=== PATIENT | male | born 1955 | race Caucasian/White ===

== ENCOUNTER 2018-03-13 09:28 | Outpatient (CLI) | payer BC, SELFPAY ==
--- NOTE | 2018-03-13 09:28 | DI.RAD_ITS ---
SYMPTOM/DIAGNOSIS: LT KNEE PAIN, ? DJD LEFT KNEE: Three views. No priors. There is mild narrowing of the femoral tibial joint space. Mild periarticular spurring is seen of the posterior patella. The bones are intact and normally mineralized. There is a small suprapatellar joint effusion. Vascular calcifications are seen in the soft tissues. IMPRESSION: Mild degenerative changes of the left knee.
== END 2018-03-13 09:48 ==
PROVIDERS: PCP Nurse Practitioner; Visit Provider Orthopaedic Surgery
DX: M25.562 Pain in left knee (principal); M17.12 Unilateral primary osteoarthritis, left knee; M25.462 Effusion, left knee
CPT/HCPCS: 73562

== ENCOUNTER 2018-06-08 02:55 | Outpatient (CLI) | payer BC, SELFPAY ==
[2018-06-08 09:55] LABS: HCT 42.1 % (40.0-50.0); HGB 15.1 g/dL (13.5-17.5); Mean Corp. HGB Concentration 35.9 g/dL (32.0-36.0); Mean Corpuscular Hemoglobin 32.8 pg (27.0-33.0); Mean Corpuscular Volume 91.3 fL (80-95); Mean Platelet Volume 10.2 fL (8.0-11.0); Platelet Count 177 x1000/uL (130-400); RBC 4.61 m/cumm (4.50-6.00); RBC Distribution Width 12.5 % (11.8-14.1); White Blood Cell Count 4.79 k/cumm (4.4-10.8)
[2018-06-08 10:09] LABS: ALT 34 U/L (12-78); AST 24 U/L (15-37); Albumin 3.6 g/dL (3.4-5.0); Alkaline Phosphatase 115 U/L (46-116); BUN 14 mg/dL (7-18); Bilirubin, Total 1.6 mg/dL (0.2-1.0); CREATININE 1.01 mg/dL (0.70-1.30); Calcium 8.9 mg/dL (8.5-10.1); Chloride 103 mmol/L (98-107); Cholesterol 138 mg/dL (50-200); Glucose 100 mg/dL (70-100); HDL Cholesterol 38 mg/dL (40-60); LDL CHOLESTEROL 92 mg/dL (<100); Potassium 3.9 mmol/L (3.5-5.1); Sodium 143 mmol/L (136-145); Triglyceride 61 mg/dL (30-150)
== END 2018-06-08 03:15 ==
PROVIDERS: PCP Nurse Practitioner; Visit Provider Nurse Practitioner
DX: I10 Essential (primary) hypertension (principal); E78.5 Hyperlipidemia, unspecified; E66.9 Obesity, unspecified
CPT/HCPCS: 36415; 80053; 80061; 83721; 85027

== ENCOUNTER → 2018-09-27 08:30 | Outpatient (BNVA) | payer MEDICARE, OTHER, SELFPAY | PROVIDERS: PCP Nurse Practitioner; Referring Provider Nurse Practitioner; Visit Provider Orthopaedic Surgery | DX: M17.12 Unilateral primary osteoarthritis, left knee (principal) | CPT/HCPCS: 20610; 99211; 99212; J7325 ==

== ENCOUNTER 2018-10-14 08:50 | Emergency (ER) | payer MEDICARE, SELFPAY ==
[2018-10-14 09:05] VITALS: BP 152/74; PULSE 76; RESP 16; TEMP 36.8; O2SAT 96
--- NOTE | 2018-10-14 09:33 | ED.GENADUL_ITS ---
Discharge Plan Disposition Patient Disposition: HOME Discharge Details Chief Complaint: Nausea/Vomit/Diar Clinical Impression: Diarrhea Primary Care Provider: Noris Diallo ED Provider: Pradeep Carrasco Home Meds and New Rx's Prescriptions: No Action Prilosec OTC 20 mg tablet,delayed release (DR/EC) 20 mg PO DAILY RF: 0 losartan-hydrochlorothiazide [Hyzaar] 50-12.5 mg tablet 1 tab PO DAILY Qty: 90 RF: 3 aspirin [Aspir-81] 81 MG tablet,delayed release (DR/EC) 81 mg PO DAILY RF: 0 naproxen sodium [Aleve] 220 MG tablet 220 mg PO Q12H PRN RF: 0 Zyrtec 10 MG tablet,disintegrating 10 mg PO DAILY PRNRF: 0 ibuprofen-diphenhydramine cit [Motrin PM] 1 EACH tablet 1 ea PO HS PRNRF: 0 desoximetasone 0.25 % cream 1 applic TP BID PRN (Reason: skin irritation) Qty: 60 RF: 3 Discharge Instructions Instructions: High Fiber Diet (ED), Acute Diarrhea (ED) Additional Instructions: Your blood tests today do not show anything acute at this time to cause your symptoms. It is imperative to follow-up with your doctor over the next 1 to 2 days for follow-up as you may require further testing to investigate the cause of your symptoms. Return to the emergency department should you develop abdominal pain, vomiting or fever. Referrals: Noris Diallo, DRIER ATTENDANT [Primary Care Provider] - 1 day Medical Decision Making This is a nontoxic-appearing 63-year-old gentleman with somewhat chronic symptoms of diarrhea and increased flatulence over the last 2 to 3 months. His abdominal exam today is benign and is without pain. Vitals are stable with the exception of a slight hypertension. His blood test today are unremarkable. No indication for CT at this time based on his lack of abdominal pain symptoms. I do feel he would require follow-up with his primary care provider to discuss further work-up possibly including upper and lower endoscopy. Patient is stable at this time for discharge HPI General Date/Time Provider Initiated Documentation: 10/14/18 09:21 . HPI Narrative: Patient is a 63-year-old male with past medical history significant for hypertension and GERD who presents to the emergency department with roughly 2 to 3 months of intermittent bouts of diarrhea with increased flatulence. He admits to periods of nausea however diet denies any nausea now. No abdominal pain associated with the symptoms. No chest pain or shortness of breath. He denies any watery diarrhea. No recent antibiotics or travel outside of the country. He denies any sick contacts. His most recent colonoscopy was 5 years ago which was significant for diverticulosis. Related Data Home Medications Medication Instructions Recorded Confirmed aspirin [Aspir 81] 81 mg PO DAILY tab 07/04/12 10/14/18 cetirizine [Zyrtec] 10 mg PO DAILY PRN 07/04/12 10/14/18 naproxen sodium [Aleve] 220 mg PO Q12H PRN tab 07/04/12 10/14/18 ibuprofen-diphenhydramine cit 1 ea PO HS PRN cap 06/16/15 10/14/18 [Motrin Pm Caplet] desoximetasone 0.25 % topical cream 1 applic TP BID PRN #60 gm 12/22/17 10/14/18 losartan 50 mg-hydrochlorothiazide 1 tab PO DAILY #90 tab 06/28/18 10/14/18 12.5 mg tablet omeprazole magnesium 20 mg 20 mg PO DAILY 06/28/18 10/14/18 tablet,delayed release Previous Rx's Medication Instructions Recorded desoximetasone 0.25 % topical cream 1 applic TP BID PRN #60 gm 12/22/17 losartan 50 mg-hydrochlorothiazide 1 tab PO DAILY #90 tab 06/28/18 12.5 mg tablet Allergies Allergy/AdvReac Type Severity Reaction Status Date / Time lisinopril AdvReac Intermediate Cough Verified 10/14/18 09:12 pseudoephedrine HCl AdvReac Intermediate extremely Verified 10/14/18 09:12 [From [facility]] high BP oxycodone AdvReac Unknown Nausea and Verified 10/14/18 09:12 Vomiting General Stated Complaint: Nausea/Vomit/Diar JEFFY: 3 Review of Systems Constitutional Denies body ache(s), Denies chills, Reports fatigue, Denies fever(s), Denies lethargy, Denies malaise and Denies night sweats ENT Denies neck pain Cardiovascular Denies chest pain, Denies edema, Denies irregular heart rhythm and Denies dyspnea Respiratory Denies cough and Denies dyspnea Gastrointestinal Denies abdominal pain, Denies belching, Denies melena, Reports bloating, Denies constipation, Reports cramping, Reports excessive flatus, Denies heartburn, Denies diarrhea, Reports loose stools, Reports nausea, Denies vomiting and Denies hematemesis Genitourinary Denies genital pain, Denies dysuria and Denies urinary frequency Musculoskeletal Denies back pain, Denies myalgias, Denies atrophy and Denies neck pain Integumentary/Breasts Denies rash Endocrine Reports fatigue PFSH Family History Father Heart disease Mother No problems noted. Social History Smoking/Tobacco Use Status: Former Tobacco Use Alcohol Intake: never Drug use: Never Household members: spouse What is your relationship status?: Panel score (0-1 are the most socially isolated patients): 1 Sivan/Cheondoism: zoroastrianism Do you feel safe at home: Yes Do you feel safe in your relationship?: Yes Exam Const General: cooperative, healthy appearing and comfortable Nutritional Appearance: average body habitus Orientation: alert, awake and oriented x3 HENMT Head: normal to inspection Eyes General: appearance normal, both eyes and all related structures Chest Chest: normal inspection of the chest Resp Effort & Inspection: normal respiratory effort and able to speak in complete sentences Auscultation: clear to auscultation bilaterally Cardio Jugular venous pressure: no JVD Rate: regular rate Rhythm: regular rhythm Heart Sounds: S1 normal and S2 normal GI Inspection: normal to inspection Palpation: soft and no hepatosplenomegaly Back/Spine/Pelvis Back: no CVA tenderness Thoracic/Lumbar Spine: thoracic and lumbar spine normal to inspection Skin General skin exam: no rashes or lesions noted Course Vital Signs Temperature 36.8 C 10/14/18 09:05 Pulse 76 10/14/18 09:05 Respiratory Rate 16 10/14/18 09:05 Blood Pressure 152/74 H 10/14/18 09:05 Pulse Oximetry 96 10/14/18 09:05 Temperature 36.8 C 10/14/18 09:05 Temperature Source Temporal Artery Scan 10/14/18 09:05 Pulse 76 10/14/18 09:05 Respiratory Rate 16 10/14/18 09:05 Respiratory Effort Non-Labored 10/14/18 09:09 Blood Pressure 152/74 H 10/14/18 09:05 Blood Pressure Position Sitting 10/14/18 09:05 Pulse Oximetry 96 10/14/18 09:05 Oxygen Delivery Method Room Air 10/14/18 09:05 Oxygen Flow Rate 0 10/14/18 09:05 Pain Level 2 10/14/18 09:05
[2018-10-14 10:04] LABS: Absolute Basophil Count 0.01 k/cumm (0.0-0.2); Absolute Lymphocyte Count 1.35 k/cumm (1.2-3.4); Absolute Monocyte Count 0.55 k/cumm (0.11-0.7); Absolute Neutrophil Count 3.61 k/cumm (1.2-6.7); Basophils % 0.2; Eosinophils % 3.5; HCT 40.5 % (40.0-50.0); HGB 14.7 g/dL (13.5-17.5); Lymphocytes % 23.6; Mean Corp. HGB Concentration 36.3 g/dL (32.0-36.0); Mean Corpuscular Hemoglobin 32.9 pg (27.0-33.0); Mean Corpuscular Volume 90.6 fL (80-95); Mean Platelet Volume 9.3 fL (8.0-11.0); Monocytes % 9.6; Neutrophils % 63.1; Platelet Count 167 x1000/uL (130-400); RBC 4.47 m/cumm (4.50-6.00); RBC Distribution Width 12.6 % (11.8-14.1); White Blood Cell Count 5.72 k/cumm (4.4-10.8)
[2018-10-14 10:23] LABS: ALT 32 U/L (12-78); AST 24 U/L (15-37); Albumin 3.6 g/dL (3.4-5.0); Alkaline Phosphatase 101 U/L (46-116); Anion Gap 6.6 mmol/L (3-11); BUN 14 mg/dL (7-18); CO2 30.4 mmol/L (21.0-32.0); CREATININE 1.02 mg/dL (0.70-1.30); Calcium 8.7 mg/dL (8.5-10.1); Chloride 104 mmol/L (98-107); Glucose 104 mg/dL (70-100); Magnesium 1.8 mg/dL (1.8-2.4); Potassium 3.7 mmol/L (3.5-5.1); Sodium 141 mmol/L (136-145)
[2018-10-14 10:34] LABS: Bilirubin Negative (Negative); Blood Negative (Negative); Clarity Clear (Clear); Glucose Negative (Negative); Ketones Negative (Negative); Leukocyte Esterase Negative (Negative); Nitrite Negative (Negative); Specific Gravity 1.015 (1.005-1.025); Urobilinogen 0.2 EU/dL (Up TO 0.2); pH 7.5 (5-8)
[2018-10-14 11:13] VITALS: BP 140/79; PULSE 67; RESP 16; O2SAT 95
[2018-10-14 11:16] VITALS: BP 140/79; PULSE 67; RESP 16; O2SAT 95
== END 2018-10-14 11:16 | disposition home or self-care (01) ==
PROVIDERS: Emergency Provider Physician Assistant; PCP Nurse Practitioner
DX: R19.7 Diarrhea, unspecified (principal); K21.9 Gastro-esophageal reflux disease without esophagitis; I10 Essential (primary) hypertension
CPT/HCPCS: 36415; 80053; 99283; 81003; 83735; 85025

== ENCOUNTER 2018-10-15 10:20 | Outpatient (CLI) | payer MEDICARE, SELFPAY ==
--- NOTE | 2018-10-15 10:04 | DI.RAD_ITS ---
SYMPTOM/DIAGNOSIS: ASSESS STOOL AND GAS PATTERN, ? EXCESS STOOL R14.0, ABDOMINAL DISTENSION R19.7 ABDOMEN: 10/15 Two views were obtained. Note is made of mild degenerative changes of both hips and SI joints with old inferior pelvic deformity consistent with healed fracture and no change in alignment from 05/31/2011. There are moderate degenerative changes of the lower lumbar spine. Multiple vascular clips are present in the right upper quadrant. Bowel gas pattern is unremarkable. No evidence of organomegaly. No evidence of urinary tract calcification. CONCLUSION: No evidence of acute intra-abdominal process. No evidence of constipation by radiographic criteria.
== END 2018-10-15 10:40 ==
PROVIDERS: PCP Nurse Practitioner; Visit Provider Nurse Practitioner Adult Health
DX: R14.0 Abdominal distension (gaseous) (principal); R19.7 Diarrhea, unspecified
CPT/HCPCS: 74018

== ENCOUNTER 2019-03-29 09:32 | Outpatient (CLI) | payer MEDICARE, OTHER, SELFPAY ==
--- NOTE | 2019-03-29 09:47 | DI.RAD_ITS ---
EXAM: XR KNEE LT 3V AP,LAT,CHIDI CLINICAL HISTORY: OA left knee TECHNIQUE: COMPARISON: XR knee RT 3V AP,lat,chidi from 03/13/2018 FINDINGS: Three views were obtained. There is an old healed proximal fibular diaphyseal fracture. There is na rrowing of the lateral tibiofemoral cartilaginous joint space and to a lesser degree narrowing of the medial tibiofemoral cartilaginous joint space. Mild marginal osteophyte formation noted. Small ent hesophyte of the superior patella noted. IMPRESSION: Degenerative changes predominantly involving lateral tibiofemoral joint.
--- NOTE | 2019-03-29 09:55 | DI.RAD_ITS ---
EXAM: XR HIP LT COMPLETE AP PELVIS CLINICAL HISTORY: left knee pain TECHNIQUE: COMPARISON: LEFT HIP COMPLETE from 05/31/2011 FINDINGS: Two views were obtained. There is narrowing of the cartilaginous joint spaces of both hips. There a re moderate hypertrophic changes of the acetabula bilaterally, slight head deformity noted bilaterall y as well. Calcific or ossific bodies seen adjacent to both hip joints left greater than right. IMPRESSION: Moderate DJD both hips. Probable old healed pelvic fracture.
== END 2019-03-29 09:52 ==
PROVIDERS: PCP Nurse Practitioner; Referring Provider Nurse Practitioner; Visit Provider Student in an Organized Health Care Education/Training Program
DX: M25.562 Pain in left knee (principal); M17.12 Unilateral primary osteoarthritis, left knee; M16.52 Unilateral post-traumatic osteoarthritis, left hip
CPT/HCPCS: 73562; 99214; 73502

== ENCOUNTER → 2019-04-15 10:32 | Outpatient (BNVA) | payer MEDICARE, OTHER, SELFPAY | PROVIDERS: PCP Nurse Practitioner; Referring Provider Nurse Practitioner; Visit Provider Student in an Organized Health Care Education/Training Program | DX: M17.12 Unilateral primary osteoarthritis, left knee (principal) | CPT/HCPCS: 99213 ==

== ENCOUNTER → 2019-05-20 12:58 | Outpatient (BNVA) | payer MEDICARE, OTHER, SELFPAY | PROVIDERS: PCP Nurse Practitioner; Referring Provider Nurse Practitioner; Visit Provider Student in an Organized Health Care Education/Training Program | DX: M17.12 Unilateral primary osteoarthritis, left knee (principal) | CPT/HCPCS: 99213 ==

== ENCOUNTER → 2019-07-15 09:06 | Outpatient (BNVA) | payer MEDICARE, SELFPAY | PROVIDERS: PCP Nurse Practitioner; Referring Provider Nurse Practitioner; Visit Provider Student in an Organized Health Care Education/Training Program | DX: M16.52 Unilateral post-traumatic osteoarthritis, left hip (principal); M17.12 Unilateral primary osteoarthritis, left knee | CPT/HCPCS: 99213 ==

== ENCOUNTER 2019-07-18 01:05 | Outpatient (CLI) | payer MEDICARE, SELFPAY ==
--- NOTE | 2019-07-18 07:45 | DI.RAD_ITS ---
EXAM: RF JOINT INJECTION FLUORO GUID CLINICAL HISTORY: OA left hip,POST TRAUMATIC, M16.52 TECHNIQUE: COMPARISON: No exams were available for comparison FINDINGS: Fluoroscopy was utilized by Dr. Brown during left hip injection. Hard copy shows intra-articular injection. Fluoro time was 6 seconds. IMPRESSION:
--- NOTE | 2019-07-18 14:02 | W.PROCNOTE ---
Date of service: 07/18/19 Time of Service: 14:02 Procedure Note Date of procedure: 07/18/19 Procedure: Left Hip Injection with Fluoroscopic Guidance Surgeon/Proceduralist/Physician: Graeme Brown Procedure Diagnosis: Left Hip Osteoarthritis Procedure Indications: Klever has had persistent pain of the LEFT hip and leg. He has history of trauma on the left hip and some arthritis. To rule out the hip as a source of pain for the leg and knee, I recommended an injection of the left hip. I had discussed the risks of the procedure and the patient elected to proceed. Procedure Description: Klevre was greeted in the flouroscopy room. The correct side was identified and the consent was reviewed with the patient and signed. The patient was then placed in the supine position on the fluoroscopy table. The LEFT hip was then prepped with Chloraprep. The anterolateral injection starting point was identiifed by bony landmarks and fluoroscopy. The skin and soft tissue in the tract of the injection was anesthetized with 1% Lidocaine. A spinal needle was then inserted deep into the hip joint at the level of the lateral femoral neck under fluoroscopic guidance. A small amount of Omnipaque solution was injected to confirm intraarticular placement. Once confirmed, the hip was injected with 6cc of 0.5% Bupivicaine and 80mg of Depo-Medrol. A bandaid was placed on the injection site. The patient tolerated the procedure well and noted improvement in pre-injection pain.
[2019-07-18] MEDS: Omnipaque 300 MG/ML 10 ML BTL IJ (14:57)
[2019-07-18] MEDS: Bupivacaine 0.5% Pres-Free 10 ML VIAL 6 ML IJ (14:59)
[2019-07-18] MEDS: methylPREDNISolone ACETATE 80 MG/ML VIAL IM (15:00)
== END 2019-07-18 01:25 ==
PROVIDERS: PCP Nurse Practitioner; Visit Provider Student in an Organized Health Care Education/Training Program
DX: M25.552 Pain in left hip (principal); M79.605 Pain in left leg; M16.52 Unilateral post-traumatic osteoarthritis, left hip
CPT/HCPCS: 20610; 77002; J1040

== ENCOUNTER 2019-08-22 04:36 | Outpatient (CLI) | payer MEDICARE, SELFPAY ==
[2019-08-22 08:30] LABS: Absolute Basophil Count 0.03 k/cumm (0.0-0.2); Absolute Eosinophil Count 0.21 k/cumm (0.0-0.7); Absolute Lymphocyte Count 1.64 k/cumm (1.2-3.4); Absolute Monocyte Count 0.57 k/cumm (0.11-0.7); Basophils % 0.6; Eosinophils % 3.9; HCT 41.2 % (40.0-50.0); HGB 14.9 g/dL (13.5-17.5); Lymphocytes % 30.7; Mean Corp. HGB Concentration 36.2 g/dL (32.0-36.0); Mean Corpuscular Hemoglobin 32.7 pg (27.0-33.0); Mean Corpuscular Volume 90.5 fL (80-95); Mean Platelet Volume 9.6 fL (8.0-11.0); Monocytes % 10.7; Neutrophils % 54.1; Platelet Count 206 x1000/uL (130-400); RBC 4.55 m/cumm (4.50-6.00); RBC Distribution Width 12.6 % (11.8-14.1); White Blood Cell Count 5.35 k/cumm (4.4-10.8)
[2019-08-22 08:39] LABS: Hemoglobin A1C 5.3 % (3.8-5.6)
[2019-08-22 08:58] LABS: ALT 43 U/L (16-63); AST 28 U/L (15-37); Albumin 3.9 g/dL (3.4-5.0); Alkaline Phosphatase 139 U/L (46-116); Anion Gap 5.7 mmol/L (3-11); BUN 12 mg/dL (7-18); Bilirubin, Total 1.3 mg/dL (0.2-1.0); CO2 32.3 mmol/L (21.0-32.0); CREATININE 0.99 mg/dL (0.70-1.30); Calcium 8.8 mg/dL (8.5-10.1); Chloride 104 mmol/L (98-107); Glucose 109 mg/dL (74-106); Potassium 3.7 mmol/L (3.5-5.1); Sodium 142 mmol/L (136-145); Total Protein 7.1 g/dL (6.4-8.2)
[2019-08-22 09:00] LABS: Calculated LDL 104 mg/dL (<100); Cholesterol 168 mg/dL (<200); HDL Cholesterol 46 mg/dL (40-60); Triglyceride 93 mg/dL (<150)
== END 2019-08-22 04:56 ==
PROVIDERS: Student in an Organized Health Care Education/Training Program; PCP Nurse Practitioner; Visit Provider Nurse Practitioner
DX: I10 Essential (primary) hypertension (principal); E78.6 Lipoprotein deficiency; R73.01 Impaired fasting glucose
CPT/HCPCS: 36415; 80053; 80061; 83036; 85025

== ENCOUNTER 2019-08-30 09:15 | Outpatient (CLI) | payer MEDICARE, SELFPAY ==
--- NOTE | 2019-08-30 08:30 | DI.RAD_ITS ---
EXAM: XR STANDING ALIGNMENT CLINICAL HISTORY: preoperative planning TECHNIQUE: COMPARISON: No exams were available for comparison FINDINGS: AP standing alignment views were obtained for preoperative planning. There are mild degenerative janny nges of both hips. There are degenerative changes of the medial and lateral tibiofemoral joints bila terally. IMPRESSION:
== END 2019-08-30 09:35 ==
PROVIDERS: PCP Nurse Practitioner; Referring Provider Nurse Practitioner; Visit Provider Physician Assistant
DX: M16.0 Bilateral primary osteoarthritis of hip (principal); M17.0 Bilateral primary osteoarthritis of knee; Z01.818 Encounter for other preprocedural examination
CPT/HCPCS: 77073

== ENCOUNTER 2019-09-02 07:55 | Outpatient (CLI) | payer MEDICARE, SELFPAY ==
[2019-09-02 20:44] LABS: COVID-19 RT-PCR UVMMC Result Negative (Negative)
== END 2019-09-02 08:15 ==
PROVIDERS: PCP Nurse Practitioner; Visit Provider Student in an Organized Health Care Education/Training Program
DX: Z01.818 Encounter for other preprocedural examination (principal); Z11.59 Encounter for screening for other viral diseases
CPT/HCPCS: U0003

== ENCOUNTER 2019-09-04 07:06 | Observation (INO) | payer MEDICARE, SELFPAY ==
[2019-09-04] VITALS (8 sets, daily range): BP systolic 149–164; BP diastolic 76–92; PULSE 52–72; RESP 15–19; TEMP 36.2–36.8; O2SAT 96–98
[2019-09-04] MEDS: Acetaminophen 500 MG TAB 1000 MG PO ×2 (06:26→12:46)
[2019-09-04] MEDS: Celecoxib 200 MG CAP 400 MG PO (06:26)
[2019-09-04] MEDS: Gabapentin 300 MG CAP PO (06:26)
[2019-09-04] MEDS: Lactated Ringers 1,000 ML 80 ML IV ×2 (07:31→12:03)
[2019-09-04] MEDS: ceFAZolin 2 GM/50 ML BAG IVPB (07:47)
[2019-09-04] MEDS: Ketorolac 30 MG/ML VIAL (08:14)
[2019-09-04] MEDS: Bupivacaine 0.25% Pres-Free 30 ML VIAL (08:14)
[2019-09-04] MEDS: Normal Saline 20 ML VIAL (08:16)
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
--- NOTE | 2019-09-04 13:11 | ROE_ITS ---
Date of service: 09/04/19 Time of Service: 09:29 Operative Note Operative Note DATE OF PROCEDURE: 09/04/19 PRE-OP DIAGNOSIS: Left Knee Osteoarthritis POST-OP DIAGNOSIS: same PROCEDURE: Left Total Knee Replacement SURGEON: Graeme Brown COMMUNICATIONS PROJECT MANAGER: Tatum Temple COMMUNICATIONS PROJECT MANAGER: Yannick Mcmahon ANESTHESIA: regional and spinal ESTIMATED BLOOD LOSS: 200 PATHOLOGY: none sent TOURNIQUET TIME: 42 COMPLICATIONS: None Patient was transported to: PACU Patient's condition: stable Implants: 1. Depuy Attune Cementless Cruciate Retaining Femoral Component, Size 6 2. Depuy Attune Cementless Rotating Platform Tibial Component, Size 6 3. Depuy Attune 6x5 CR/RP Poly 4. Depuy Attune Patellar Component, Size 38 Indications: I have seen Klever in clinic for symptoms of knee arthritis, confirmed with radiographic findings. Klever has exhausted nonoperative methods and was having significant limitations in daily function and desired better function and less pain. I discussed the technical details of a knee replacement. I explained the risks of the procedure to include, but not limited to, bleeding, infection, pain, stiffness, fracture, damage to nerves and vessels, damage to muscles and tendons, loosening, need for repeat procedure, blood clot and cardiopulmonary demise. Despite these risks, Klever elected to proceed. Findings: * There was significant signs of arthritis throughout the knee. All three compartments were involved. Procedure Description: Klever was greeted in the preoperative holding area where the correct side was identified and marked. The consent was reviewed with the patient and signed. The history and physical was updated. All questions were answered. Preoperative medications were administered: Acetaminophen 1000mg, Celebrex 400mg, and Gabapentin 300mg. An adductor canal block was then administered by the anesthesia team in the PACU. Klever was taken back to the operating room. A spinal anesthestic was then administered. The patient was placed into the supine position on the operating room table. A nonsterile tourniquet was placed high onto the leg but only used for cementing. Posts were placed for positioning during the procedure. All bony prominences were well padded. Prophylactic antibiotics in the form of Cefazolin were administered. 1g of Tranxemic Acid was given intravenously within 30 minutes of incision. The left leg was then prepped with Chloraprep and draped in a standard fashion with impervious stockinette. A second prep with Chloraprep was performed prior to application of Iodine impregnated skin pr otection. A timeout to confirm correct identity, side and site, procedure, allergies, anesthesia, and medical concerns was performed. With the knee in some flexion, a midline incision was made overlying the knee. Full thickness skin flaps were raised once the extensor mechanism was encountered. These were raised medially and laterally. Any bleeding was controlled with electrocautery. Once the extensor mechanism was fully exposed, a medial parapatellar arthrotomy was performed in a flexed position. All bleeding from the arthrotomy and the geniculate arteries was coagulated. A medial subperiosteal peel was performed with electrocautery to the midcoronal plane. The fat pad was removed while keeping the patellar tendon protected. The anterior distal femur synovium was removed for later visualization. The ACL and PCL were resected and the anterior horn of the lateral meniscus was transected. The knee was then flexed with the patella everted. Large osteophytes from the tibia were removed. Large osteophytes from the femur were removed. Using a step drill, and based on preoperative templating, the femoral canal was entered. This was done with a step drill without any difficulty. The intramedullary distal femoral cut guide was inserted, set to a 5 degree valgus cut and 9mm cut thickness. The distal femoral cut guide was then held in position and pinned. With the soft tissues protected, the distal cut was performed. This was passed over a few times to ensure a planar cut. I then turned attention to the tibia. The extramedullary guide was placed onto the leg. The distal aspect was slid medial to adjust for position of center of ankle and stay in line with shaft of the tibia. Approximately 3-5 degrees of posterior slope was kept in the proximal cutting guide. The center of the guide was aligned with the PCL. The stylus was used to assess cut thickness. Both compartments of the tibia were involved and based on the preoperative images, this would be a balanced cut. The lateral side, most involved side, was set for a 6mm cut, which corresponded to 7mm medially. This was then held in position and pinned into place with 2 additional pins and a cross pin for stability. The medial and lateral collateral ligaments were protected and the cut was performed. With this completed, it was assessed and noted to be of appropriate dimensions. The guide was removed. A spacer block was inserted and the knee was brought into extension. The 5mm spacer block provided full extension, without hyperextension and with stability of both the medial and lateral collateral ligaments was assessed. The pins from the femur and the tibia were then removed. The distal femur was then sized. The anterior stylus was placed onto the lateral ridge of the anterior femur. This indicated a size 6 femur. The external rotation of the guide was adjusted to 3 degrees to match the epicondylar axis, perpendicular to [place]?s line. The 4-in-1 cutting guide was the placed. The posterior medial femur cut was evaluated and appeared of good thickness. The spacer block was inserted underneath the cutting guide and stability was confirmed in 90 degrees of flexion. An christina wing was used to confirm appropriate position of the anterior cut to avoid notching. This cutting guide was ensured to be flush on the cut surface and then pinned into place with headed pins. While protecting the soft tissues, quad tendon, and collateral ligaments, the anterior and posterior cuts were performed with a saw. The central two pins were removed and the posterior and anterior chamfers were cut next. The notch-cutting guide was placed. This was pinned to lateralize the femoral component as much as possible while keeping it flush on the cut surface. This was then pinned into position. A reciprocating saw was used to make the notch cut. A rasp smoothed the cut surfaces. The medial and lateral menisci were removed. A trial femoral component was then inserted, impacted down to the cut surfaces, and the lug holes were drilled. A provisional trial tibial component was placed and the knee was brought through range of motion. There was noted to be excellent extension and flexion. There was no significant instability. The patella was tracking without thumbs. A size 5mm polyethylene component provided the best range of motion and stability with less than 2mm gapping with medial and lateral stress and full extension without significant hyperextension. The tibial cut surface was fully exposed. The tibia was then sized as a 6. The tibia had been previously marked during trialing to correspond to the center of the tibial component to help with rotation. The trial was aligned to this karin, approximately rotated to the medial 1/3rd of the tibial tubercle. The trial was pinned into place. The tibia was prepared with a reamer and a keel punch and lug holes. The knee was then brought into extension and the patella was measured as 28mm. Using the patellar clamp and cut guide, this was resected to a flat surface with at least 13mm of thickness remaining. The size 38 patella fit the best. This was oriented and then clamped into position. The lugs were drilled. The trial components were removed. The final components were opened on the back table. The periosteal and capsular tissues, especially posteriorly, around the knee were then systematically injected with a periarticular cocktail consisting of 50cc 0.25% Marcaine, 30mg Ketorolac, 20cc of Exparal and 50cc of injectable saline. The knee was thoroughly irrigated with a pulse lavage and dried. Irrisept was also used to irrigate the tissues. On the back table, with the implants opened, the cement was mixed. One batche of high viscosity cement were prepared with vacuum assistance. After the cement was ready a small amount was placed on the cut surface of the patella and the patellar button was clamped into position and held. During this process attention was turned to the gutters of the knee and for all interfaces for any excess cement. While the cement was hardening, the cementless knee components were placed. Starting with the tibial component, the tibia was subluxed anteriorly and the lug holes of the component were lined up. The tibia was then impacted with an impactor and mallet until the tibial component was in contact with the tibia. The final polyethylene component was inserted. Then, the femoral component was inserted. The lug holes were aligned and the component was impacted into position. The knee was irrigated with Irrisept chlorhexadine solution. This was allowed to sit in the knee for 3 minutes. After the cement had finally cured, approximately 15min, the clamp was removed from the patella and the knee was taken through range of motion. The patella was tracking with a no-thumbs technique. The capsule was then reapproximated with a No. 1 Vicryl at multiple locations. The capsule was finally closed with a No. 2 Stratafix, barbed suture. The tourniquet was then released and the arthrotomy appeared watertight without significant bleeding. The second dosing of 1g TXA was started. Deep tissues were then reapproximated with 0 Vicryl and 2-0 Vicryl. The skin was closed with a running 3-0 Monocryl in a subcuticular fashion. This was reinforced with skin glue. A Mepilex silver dressing was applied along with a [id number] ETTA wrap. A CryoCuff was applied. Klever was transferred to the hospital bed without difficulty an suffering no apparent complication. Klever has a good prognosis. Physical therapy will start today and without restrictions, weight-bearing as tolerated. Aspirin 81mg BID will be used for DVT prophylaxis.
== END 2019-09-04 14:20 | disposition home or self-care (01) ==
LOC: SUR 07:54 → MS 10:15
PROVIDERS: Admitting Provider Student in an Organized Health Care Education/Training Program; PCP Nurse Practitioner; Visit Provider Student in an Organized Health Care Education/Training Program
PROC: 0SRD0J9 Replacement of Left Knee Joint with Synthetic Substitute, Cemented, Open Approach (ICD-10-PCS; CPT 27447; principal; 2019-09-04 07:30)
DX: M17.12 Unilateral primary osteoarthritis, left knee (principal); M25.562 Pain in left knee; Z96.652 Presence of left artificial knee joint; R01.1 Cardiac murmur, unspecified
CPT/HCPCS: 27447; C1776; 76942; 97530; NC; E0114; J0690; J1885; J2250; J3010

== ENCOUNTER 2019-09-19 09:01 | Outpatient (CLI) | payer MEDICARE, SELFPAY ==
--- NOTE | 2019-09-19 08:30 | DI.RAD_ITS ---
EXAM: XR KNEE LT 1V CLINICAL HISTORY: 1st post op TECHNIQUE: COMPARISON: CR XR KNEE LT 3V AP,LAT,CHIDI from 03/29/2019 CR XR STANDING ALIGNMENT from 09/19/2019 FINDINGS: Bilateral AP standing alignment view of the lower extremities was performed along with a lateral view of the left knee. There is a total left knee joint replacement in position. Components appear well seated. There are mild hypertrophic degenerative changes of the hips bilaterally. There are severe degenerat ken changes involving the medial tibiofemoral joint on the right. IMPRESSION:
== END 2019-09-19 09:21 ==
PROVIDERS: PCP Nurse Practitioner; Referring Provider Nurse Practitioner; Visit Provider Student in an Organized Health Care Education/Training Program
DX: Z96.652 Presence of left artificial knee joint (principal); M16.0 Bilateral primary osteoarthritis of hip; M17.11 Unilateral primary osteoarthritis, right knee; Z47.1 Aftercare following joint replacement surgery
CPT/HCPCS: 73560; 77073

== ENCOUNTER 2019-09-23 01:37 | Outpatient (CLI) | payer MEDICARE, SELFPAY ==
--- NOTE | 2019-09-23 09:30 | DI.US_ITS ---
EXAM: US AAA SCREENING CLINICAL HISTORY: screen AAA, Former smoker, [id number] COMPARISON: No exams were available for comparison FINDINGS: Abdominal Aorta: Proximal: 1.9 x 2 cm Mid: 2 x 2.2 cm Distal: 2 x 2 cm Iliac's: Right: 1.4 x 1.2 cm Left: 1.5 x 1.4 cm No significant atherosclerotic disease is seen. Note is made of right renal cysts. IMPRESSION: No evidence of abdominal aortic aneurysm. DATA REPOSITORY:
== END 2019-09-23 01:57 ==
PROVIDERS: PCP Nurse Practitioner; Visit Provider Nurse Practitioner
DX: Z87.891 Personal history of nicotine dependence (principal); Z13.6 Encounter for screening for cardiovascular disorders
CPT/HCPCS: 76706

== ENCOUNTER → 2019-10-21 08:28 | Outpatient (BNVA) | payer MEDICARE, SELFPAY | PROVIDERS: PCP Nurse Practitioner; Visit Provider Student in an Organized Health Care Education/Training Program | DX: Z96.652 Presence of left artificial knee joint (principal); Z47.1 Aftercare following joint replacement surgery ==

== ENCOUNTER → 2019-12-02 10:15 | Outpatient (BNVA) | payer MEDICARE, SELFPAY | PROVIDERS: PCP Nurse Practitioner; Referring Provider Nurse Practitioner; Visit Provider Student in an Organized Health Care Education/Training Program | DX: Z96.652 Presence of left artificial knee joint (principal); Z47.1 Aftercare following joint replacement surgery ==

== ENCOUNTER 2020-08-24 03:04 | Outpatient (CLI) | payer MEDICARE, OTHER, SELFPAY ==
[2020-08-24 12:32] LABS: Hemoglobin A1C 5.2 % (<5.7)
[2020-08-24 12:34] LABS: ALT 32 U/L (16-63); AST 23 U/L (15-37); Albumin 3.5 g/dL (3.4-5.0); Alkaline Phosphatase 116 U/L (46-116); Anion Gap 6.9 mmol/L (3-11); BUN 12 mg/dL (7-18); CO2 33.1 mmol/L (21.0-32.0); CREATININE 1.1 mg/dL (0.70-1.30); Calcium 8.7 mg/dL (8.5-10.1); Calculated LDL 94 mg/dL (<100); Chloride 106 mmol/L (98-107); Cholesterol 146 mg/dL (<200); Glucose 103 mg/dL (74-106); HDL Cholesterol 39 mg/dL (40-60); Potassium 3.8 mmol/L (3.5-5.1); Sodium 146 mmol/L (136-145); Total Protein 6.6 g/dL (6.4-8.2); Triglyceride 68 mg/dL (<150)
== END 2020-08-24 03:05 | disposition home or self-care (01) ==
LOC: LOS 03:04
PROVIDERS: PCP Nurse Practitioner; Visit Provider Nurse Practitioner
DX: E78.5 Hyperlipidemia, unspecified (principal); I10 Essential (primary) hypertension; R73.01 Impaired fasting glucose
CPT/HCPCS: 36415; 80053; 80061; 83036

== ENCOUNTER 2020-09-03 10:34 | Outpatient (CLI) | payer MEDICARE, OTHER, SELFPAY ==
--- NOTE | 2020-09-03 09:30 | DI.RAD_ITS ---
Exam(s) XR KNEE LT 2V AP,LAT EXAM: XR KNEE LT 2V AP,LAT CLINICAL HISTORY: ANNUAL F/U LEFT TKA. TECHNIQUE: 2D digital imaging was performed. COMPARISON: September 2019 x-rays FINDINGS: Two views of the left knee reveal stable alignment of the components of the prosthesis. No fracture or loosening evident. Healed oblique fracture of the proximal 3rd of the fibula is noted. IMPRESSION: DATA REPOSITORY: RADIATION DOSE DELIVERED:
== END 2020-09-03 10:35 | disposition home or self-care (01) ==
LOC: DIORS 10:39
PROVIDERS: PCP Nurse Practitioner; Referring Provider Nurse Practitioner; Visit Provider Student in an Organized Health Care Education/Training Program
DX: Z47.1 Aftercare following joint replacement surgery (principal); Z96.652 Presence of left artificial knee joint
CPT/HCPCS: 99213; 73560

== ENCOUNTER 2020-11-06 01:53 | Emergency (ER) | payer MEDICARE, OTHER, SELFPAY ==
[2020-11-06] VITALS (30 sets, daily range): BP systolic 155–185; BP diastolic 80–90; PULSE 61–82; RESP 9–23; TEMP 36.3; O2SAT 92–97
--- NOTE | 2020-11-06 01:45 | RT.EKG_ITS ---
APPROVED REPORT Exam: Resting ECG Reason for Exam: heartburn Patient Location: E HR:67 bpm ECG Measurements Heart Rate 67 AXIS RI 219 P 40 QRSd 106 QRS -7 QT 393 T 23 QTc 416 Conclusion Sinus rhythm...normal P axis, V-rate 60- 99 Borderline prolonged RI interval...RI >212, V-rate 50- 90 Probable left ventricular hypertrophy...multiple LVH criteria I have reviewed and interpreted ECG and agree with software generated interpretation. No STEMI
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
--- NOTE | 2020-11-06 02:00 | DI.RAD_ITS ---
Exam(s) XR CHEST 2V PA LATERAL EXAM: XR CHEST 2V PA LATERAL CLINICAL HISTORY: chest burning TECHNIQUE: 2D digital imaging was performed. COMPARISON: No exams were available for comparison FINDINGS: The heart is not enlarged. The lungs are clear and well expanded. No pleural effusion seen. Mediastin al contours appear intact. IMPRESSION: Normal chest. RADIATION DOSE DELIVERED: Total DLP
[2020-11-06 02:29] LABS: Abs Immature Grans 0.01 10^3/uL (0.0-0.06); Absolute Basophil Count 0.04 10^3/uL (0.0-0.2); Absolute Eosinophil Count 0.17 10^3/uL (0.0-0.7); Absolute Lymphocyte Count 1.61 10^3/uL (1.2-3.4); Absolute Monocyte Count 0.57 10^3/uL (0.1-0.8); Absolute Neutrophil Count 2.53 10^3/uL (1.2-6.7); Basophils % 0.8; Eosinophils % 3.4; HCT 43.5 % (40.0-50.0); Immature Grans % 0.2; Lymphocytes % 32.7; MCH 31.3 pg (27.0-33.0); MCHC 34.5 % (32.0-36.0); MCV 90.8 fL (80-95); MPV 9.6 fL (8.0-11.0); Monocytes % 11.6; Neutrophils % 51.3; Nucleated RBC 0 %; Platelet Count 164 10^3/uL (130-400); RBC 4.79 10^6/uL (4.36-5.78); RDW 12.1 % (11.8-14.1); RDW-SD 39.8 fL; WBC 4.93 10^3/uL (4.4-10.8)
[2020-11-06 02:38] LABS: Magnesium 1.9 mg/dL (1.8-2.4)
[2020-11-06 02:47] LABS: ALT 37 U/L (16-63); AST 24 U/L (15-37); Albumin 3.8 g/dL (3.4-5.0); Alkaline Phosphatase 109 U/L (46-116); Anion Gap 4.9 mmol/L (3-11); BUN 16 mg/dL (7-18); Bilirubin, Total 1.1 mg/dL (0.2-1.0); CO2 33.1 mmol/L (21.0-32.0); CREATININE 1.1 mg/dL (0.70-1.30); Calcium 8.9 mg/dL (8.5-10.1); Chloride 104 mmol/L (98-107); Glucose 127 mg/dL (74-106); Potassium 3.5 mmol/L (3.5-5.1); Sodium 142 mmol/L (136-145); Total Protein 7.4 g/dL (6.4-8.2); Troponin I < 0.05 ng/mL (<0.06)
--- NOTE | 2020-11-06 03:17 | DI.VRAD_ITS ---
PROCEDURE INFORMATION: Exam: XR Chest Exam date and time: 11/06/2020 2:15 AM Age: 65 years old Clinical indication: Other: Chest burning TECHNIQUE: Imaging protocol: XR of the chest. Views: 2 views. COMPARISON: CR XR ABDOMEN FLAT PLATE 10/15/2018 10:03 AM FINDINGS: Lungs: Unremarkable. No consolidation. Pleural spaces: Unremarkable. No pleural effusion. No pneumothorax. Heart/Mediastinum: Unremarkable. No cardiomegaly. Bones/joints: Unremarkable. IMPRESSION: No acute findings. Dictated and Authenticated by: Oscar Zhou MD. Ordering:VANI Jay MD
--- NOTE | 2020-11-06 05:15 | RT.EKG_ITS ---
APPROVED REPORT Exam: Resting ECG Reason for Exam: Patient Location: E HR:70 bpm ECG Measurements Heart Rate 70 AXIS MA 224 P 19 QRSd 107 QRS -17 QT 388 T -1 QTc 418 Conclusion Sinus rhythm...normal P axis, V-rate 60- 99 Prolonged MA interval...MA >220, V-rate 50- 90 Probable left ventricular hypertrophy...multiple LVH criteria I have reviewed and interpreted ECG and agree with software generated interpretation. There are no significant changes compared to prior EKG performed on 11/06/2020 at 02:02.
[2020-11-06 05:33] LABS: Troponin I < 0.05 ng/mL (<0.06)
== END 2020-11-06 05:45 | disposition home or self-care (01) ==
PROVIDERS: Emergency Provider Emergency Medicine; PCP Nurse Practitioner
DX: R12 Heartburn (principal); R07.89 Other chest pain
CPT/HCPCS: 36415; 80053; 93005; 99284; 71046; 83735; 84484; 85025; 93010; 99283

== ENCOUNTER → 2020-11-20 08:35 | Outpatient (BNVA) | payer MEDICARE, OTHER, SELFPAY | PROVIDERS: PCP Nurse Practitioner; Referring Provider Nurse Practitioner; Visit Provider Surgery | DX: K21.9 Gastro-esophageal reflux disease without esophagitis (principal) | CPT/HCPCS: 99212 ==

== ENCOUNTER 2020-11-27 02:43 | Outpatient (CLI) | payer MEDICARE, OTHER, SELFPAY ==
[2020-11-27 10:27] LABS: Source Nasal/Nares
[2020-11-27 13:56] LABS: COVID-19 PCR Negative (Negative)
== END 2020-11-27 02:44 | disposition home or self-care (01) ==
LOC: LBO 02:43
PROVIDERS: PCP Nurse Practitioner; Visit Provider Surgery
DX: Z20.822 Contact with and (suspected) exposure to COVID-19 (principal); Z01.818 Encounter for other preprocedural examination
CPT/HCPCS: 87635

== ENCOUNTER 2020-11-30 10:46 | Day surgery (SDC) | payer MEDICARE, OTHER, SELFPAY ==
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
--- NOTE | 2020-11-30 06:47 | ENDO_ITS ---
Date of service: 11/30/20 Time of Service: 13:11 Endoscopy Report DATE OF PROCEDURE: 11/30/20 PRE-OP DIAGNOSIS: GERD POST-OP DIAGNOSIS: other (Hiatal hernia, esophagitis, gastritis) PROCEDURE: EGD with biopsies SURGEON: Farideh Crespo ANESTHESIA TYPE: General:No Airway (Federico French CRNA) ESTIMATED BLOOD LOSS: 3 PATHOLOGY: other (Antrum bx, Cardia bx, GE junction bx) COMPLICATIONS: None DISPOSITION: same day INDICATIONS: Klever is an 65-year-old gentleman with a history of GERD which suddenly got worse on November 06. It woke him up from sleep and it was bad enough that he went to the emergency department. Cardiac work-up in the emergency department was normal. He was given a GI cocktail which resolved his symptoms. He has never had an upper endoscopy done before. A long time ago he did smoke but he has been tobacco free for 40 years. He has been taking omeprazole for a long time and recently added Mylanta at nighttime. We discussed upper endoscopy just to make sure that there was not an ulcer or that he does not have Gongora's. We reviewed risks and benefits. He wished to proceed. Risks, benefits and complications have been reviewed. Complications include but are not limited to bleeding, pain, perforation, sore throat, aspiration, and adverse reaction to the medications. Questions were entertained and answered to their satisfaction and they wished to proceed. No guarantees were given or i mplied. FINDINGS: mild inflammation in the antrum, some irritation ? ulcer in the cardia Hiatal hernia Schatzki's ring PROCEDURE DESCRIPTION: After informed consent was obtained the patient was take to the procedure room and placed in a supine position. Monitors were applied and a time out was done. The patients name, date of , procedure type, allergies to medications and metal in their body was reviewed. A bite block was placed and the patient was sedated. Once sedated and comfortable the gastroscope was advanced through the oropharynx which was grossly normal into the esophagus. The proximal and mid- esophagus were normal. In the distal esophagus there was a small Hiatal hernia as well as a Schatzki's ring noted. The scope was advanced into the stomach and through the pylorus into the 3rd portion of the duodenum. The duodenum was noted to be normal. The scope was retracted back into the stomach and biopsies were done to rule out H. pylori. There were ? of ulcers in the cardia. The scope was retroflexed. There was a small hiatal hernia noted. The scope was retracted back into the esophagus and biopsies were done of the GE junction to rule out Gnogora's. The Z line was regular. The GE junction was at 32 cm and there was a schatzki's ring. The scope was removed and the patient was woken up and taken back to [facility] in stable condition. Follow up: Depends on final pathology
--- NOTE | 2020-11-30 06:47 | W.PM.DSUDISC ---
Discharge Plan Disposition Patient Disposition: HOME Condition: Good Discharge Details Reason For Visit: EGD Attending Provider: Farideh Crespo Primary Care Provider: Noris Diallo Home Meds and New Rx's Prescriptions: New omeprazole 40 mg capsule,delayed release(DR/EC) 40 mg PO DAILY Qty: 30 RF: 0 Continued zypan 2 tab PO TID RF: 0 aspirin 81 mg tablet,delayed release (DR/EC) 81 mg PO DAILY RF: 0 alum-mag hydroxide-simeth [Mylanta Maximum Strength] 400-400-40 mg/5 mL suspension 5 ml PO HS RF: 0 desoximetasone 0.25 % cream 1 applic TP BID PRN (Reason: skin irritation LEs) Qty: 60 RF: 3 losartan-hydrochlorothiazide [Hyzaar] 50-12.5 mg tablet 1 tab PO DAILY Qty: 90 RF: 3 Zyrtec 10 MG tablet,disintegrating 10 mg PO DAILY PRNRF: 0 acetaminophen 500 mg tablet 500 mg PO Q6H PRN (Reason: pain) Qty: 60 RF: 2 naproxen sodium [Aleve] 220 mg Capsule RF: 0 Discontinued omeprazole magnesium [Prilosec OTC] 20 mg tablet,delayed release (DR/EC) 20 mg PO DAILY RF: 0 Discharge Instructions Instructions: Diet for Stomach Ulcers and Gastritis (ED), Gastritis (DC), Hiatal Hernia (DC) Additional Instructions: Findings: inflammation of the stomach Inflammation of the esophagus and a Hiatal Hernia Follow up: as needed Please call if you develop: fevers >101.5 Nausea or Vomiting Abdominal pain that is not transient Rectal bleeding that is more then a tbsp A hard abdomen and inability to pass gas DAY SURGERY UNIT POST ENDOSCOPY INSTRUCTIONS Instructions for everyone who is given Anesthesia: For your safety, please do the following for the next 24 Hours: a. Do not drive or operate dangerous equipment b. Do not drink alcohol beverages or use any recreational drugs for the first 24 hours or while taking pain medications. The medications in your body may have a reaction that can be dangerous. c. Do not make any important decisions or sign any important papers 1. Generally there are no restrictions on your activity after a day or so has gone by, but you may feel a bit fatigued for a few days. 2. After you arrive home you may have a light meal and return to a normal diet as you can tolerate it without feeling sick to your stomach. 3. After surgery, you may feel pain or discomfort. This should be only transient, but if it persists please contact your doctor. 4. If there are any questions regarding the findings of your procedure, please feel free to contact your doctor. 6. If you are unable to contact your doctor with a problem, contact the hospital at [phone]. 7. Continue all your regular medications unless directed otherwise. I understand the above instructions and have no questions. Signature of Patient or Responsible Adult Escort Date/Time Name of Responsible Adult Escort Signature of Nurse Date/Time Activity:: Activity as Tolerated Diet:: low acid Discharge Orders Discharge Orders: Discharge Order (Routine); Ordered 11/30/20 Ordered By: Farideh Crespo
[2020-11-30 11:21] VITALS: BP 146/87; PULSE 73; RESP 18; TEMP 36.5; O2SAT 97
[2020-11-30] MEDS: Lactated Ringers 1,000 ML 80 ML IV (11:30)
[2020-11-30 12:56] VITALS: BMI 30.9
--- NOTE | 2020-11-30 13:13 | STOM_PTH ---
PATIENT: Klever Zelaya LOC: [facility] U#:[id number] AGE/SX: 65/M ROOM: RE11/30/[address]: Farideh Crespo MD : [id number] BED: DIS: 11/30/2020 SPEC #: [id number] RECD: 11/30/20 18:33 STATUS: MAEGAN RE #: [id number] BREA: 11/30/20 13:[address]: Farideh Crespo DEPT: Surgical Specimen RECD BY: Mery Love ENTERED: 11/30/20 18:34 SP TYPE: STOMACH OTHR DR: Noris Diallo APRN Tissues: 1 - STOMACH BIOPSY 2 - STOMACH BIOPSY 3 - ESOPHAGUS BIOPSY Procedures: GROSS AND MICRO LEVEL 4 Comments: [id number]
[2020-11-30 13:25] VITALS: BP 130/87; PULSE 80; RESP 18; TEMP 36.5; O2SAT 93
--- NOTE | 2020-11-30 13:40 | W.ANESPOSTOP ---
Postoperative Evaluation Date, Time and Location Date Performed: 11/30/20 Time Performed: 13:40 Patient Location: Day Surgery Unit Vital Signs Most Recent Imported Vital Signs: Most Recent Vital Signs Temp Pulse Resp BP Pulse Ox 36.5 C 80 18 130/87 93 11/30/20 13:25 11/30/20 13:25 11/30/20 13:25 11/30/20 13:25 11/30/20 13:25 Pain Score Most Recent Pain Score: Most Recent Pain Score Pain Level 0 11/30/20 13:25 Assessment Mental Status: Awake (Alert & Oriented to Patient Baseline) Airway and Respiratory Function: Patent airway with normal (patient baseline) respiratory exam Cardiovascular Function: Hemodynamically Stable Hydration Status: Adequately Hydrated Nausea & Vomiting: No Nausea or Vomiting Pain: Pt. Denies Any Pain Peripheral Nerve Block: Patient did not receive a nerve block
[2020-11-30 13:47] VITALS: BP 137/85; PULSE 66; RESP 18; TEMP 36.3; O2SAT 97
== END 2020-11-30 14:27 | disposition home or self-care (01) ==
LOC: SUR 10:47
PROVIDERS: PCP Nurse Practitioner; Visit Provider Surgery
PROC: 0DJ68ZZ Inspection of Stomach, Via Natural or Artificial Opening Endoscopic (ICD-10-PCS; CPT 43235; principal; 2020-11-30 12:15)
DX: K21.00 Gastro-esophageal reflux disease with esophagitis, without bleeding; K29.70 Gastritis, unspecified, without bleeding; J44.9 Chronic obstructive pulmonary disease, unspecified; K22.2 Esophageal obstruction; K31.89 Other diseases of stomach and duodenum
CPT/HCPCS: 43239; 88305; J2001

== ENCOUNTER → 2020-12-18 08:40 | Outpatient (BNVA) | payer MEDICARE, OTHER, SELFPAY | PROVIDERS: PCP Nurse Practitioner; Referring Provider Nurse Practitioner; Visit Provider Surgery | DX: Z48.815 Encounter for surgical aftercare following surgery on the digestive system (principal); K29.70 Gastritis, unspecified, without bleeding | CPT/HCPCS: 99212 ==

== ENCOUNTER 2021-06-28 00:32 | Emergency (ER) | payer MEDICARE, OTHER, SELFPAY ==
[2021-06-28] VITALS (40 sets, daily range): BP systolic 125–161; BP diastolic 65–96; PULSE 70–87; RESP 13–30; TEMP 36.7; O2SAT 91–96
--- NOTE | 2021-06-28 00:30 | RT.EKG_ITS ---
APPROVED REPORT Exam: Resting ECG Reason for Exam: Heartburn/chest pain Patient Location: E HR:79 bpm ECG Measurements Heart Rate 79 AXIS TN 213 P 16 QRSd 108 QRS -17 QT 374 T 3 QTc 428 Conclusion Sinus rhythm...normal P axis, V-rate 60- 99 Borderline prolonged TN interval...TN >212, V-rate 50- 90 Probable left ventricular hypertrophy...multiple LVH criteria There are no significant changes compared to prior EKG performed on 11/06/2020 at 05:19.
--- NOTE | 2021-06-28 00:45 | DI.RAD_ITS ---
Exam(s) XR CHEST 2V PA LATERAL EXAM: XR CHEST 2V PA LATERAL CLINICAL HISTORY: CP TECHNIQUE: 2D digital imaging was performed of the chest. Two images were obtained. PA and lateral views were obtained. COMPARISON: CR,XR XR CHEST 2V PA LATERAL from 11/06/2020 FINDINGS: MEDIASTINUM: Normal. HEART: Normal. PULMONARY VASCULATURE: Normal. LUNGS: Clear. PLEURAL SPACE: No pleural effusion or pneumothorax. BONE:Within normal limits for the patient's age. OTHER FINDINGS:Surgical clips are again seen in the right upper quadrant of the abdomen. IMPRESSION: No acute pulmonary findings. DATA REPOSITORY: RADIATION DOSE DELIVERED:
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
[2021-06-28 01:04] LABS: Abs Immature Grans 0.01 10^3/uL (0.0-0.06); Absolute Basophil Count 0.03 10^3/uL (0.0-0.2); Absolute Lymphocyte Count 2.11 10^3/uL (1.2-3.4); Absolute Monocyte Count 0.72 10^3/uL (0.1-0.8); Absolute Neutrophil Count 2.87 10^3/uL (1.2-6.7); Basophils % 0.5; Eosinophils % 3.4; HCT 43.3 % (40.0-50.0); HGB 15.1 g/dL (13.5-17.5); Immature Grans % 0.2; Lymphocytes % 35.5; MCH 31.9 pg (27.0-33.0); MCHC 34.9 % (32.0-36.0); MCV 91.5 fL (80-95); MPV 9.9 fL (8.0-11.0); Monocytes % 12.1; Neutrophils % 48.3; Platelet Count 174 10^3/uL (130-400); RBC 4.73 10^6/uL (4.36-5.78); RDW-SD 40.1 fL; WBC 5.94 10^3/uL (4.4-10.8)
[2021-06-28 01:20] LABS: ALT 37 U/L (16-63); AST 24 U/L (15-37); Albumin 3.7 g/dL (3.4-5.0); Alkaline Phosphatase 135 U/L (46-116); Anion Gap 5.5 mmol/L (3-11); BUN 16 mg/dL (7-18); Bilirubin, Total 1.2 mg/dL (0.2-1.0); CO2 32.5 mmol/L (21.0-32.0); CREATININE 1.2 mg/dL (0.70-1.30); Calcium 8.8 mg/dL (8.5-10.1); Chloride 102 mmol/L (98-107); Glucose 115 mg/dL (74-106); Magnesium 2.1 mg/dL (1.8-2.4); Potassium 3.3 mmol/L (3.5-5.1); Sodium 140 mmol/L (136-145); Total Protein 7.5 g/dL (6.4-8.2)
[2021-06-28 01:22] LABS: Troponin I 76 ng/L (<or=60)
--- NOTE | 2021-06-28 02:04 | DI.VRAD_ITS ---
PROCEDURE INFORMATION: Exam: XR Chest Exam date and time: 06/28/2021 1:19 AM Age: 65 years old Clinical indication: Pain; Chest pressure; Prior surgery; Surgery date: 6+ months; Surgery type: Cp TECHNIQUE: Imaging protocol: XR of the chest. Views: 2 views. COMPARISON: CR XR CHEST 2V PA LATERAL 11/06/2020 2:37 AM FINDINGS: Lungs: The lungs are clear without infiltrate or edema. Pleural spaces: No pleural effusion or pneumothorax. Heart/Mediastinum: The cardiac silhouette is normal in size. Bones/joints: No acute osseous abnormality. Intraperitoneal space: Surgical clips are seen within the right upper quadrant, unchanged. IMPRESSION: No acute findings. No significant change from the prior study. Dictated and Authenticated by: Caroline Muro MD. Ordering:VANI Jay MD
[2021-06-28 04:26] LABS: Troponin I 72 ng/L (<or=60)
--- NOTE | 2021-06-28 04:30 | RT.EKG_ITS ---
APPROVED REPORT Exam: Resting ECG Reason for Exam: elevated troponin Patient Location: E HR:82 bpm ECG Measurements Heart Rate 82 AXIS MN 210 P 17 QRSd 109 QRS -19 QT 364 T 0 QTc 427 Conclusion Sinus rhythm...normal P axis, V-rate 60- 99 Probable left ventricular hypertrophy...multiple LVH criteria There are no significant changes compared to prior EKG performed on 06/28/2021 at 00:42.
== END 2021-06-28 05:03 | disposition home or self-care (01) ==
PROVIDERS: Emergency Provider Emergency Medicine; PCP Nurse Practitioner
DX: K21.9 Gastro-esophageal reflux disease without esophagitis (principal)
CPT/HCPCS: 36415; 80053; 93005; 99284; 71046; 83735; 84484; 85025; 93010; 99283

== ENCOUNTER 2021-07-27 07:28 | Emergency (ER) | payer MEDICARE, OTHER, SELFPAY ==
[2021-07-27 07:51] VITALS: BP 144/87; PULSE 73; RESP 16; TEMP 36; O2SAT 99
[2021-07-27 08:38] LABS: Abs Immature Grans 0.01 10^3/uL (0.0-0.06); Absolute Basophil Count 0.03 10^3/uL (0.0-0.2); Absolute Eosinophil Count 0.31 10^3/uL (0.0-0.7); Absolute Lymphocyte Count 1.21 10^3/uL (1.2-3.4); Absolute Neutrophil Count 3.23 10^3/uL (1.2-6.7); Basophils % 0.6; Eosinophils % 5.8; HCT 43.3 % (40.0-50.0); HGB 15.4 g/dL (13.5-17.5); Immature Grans % 0.2; Lymphocytes % 22.4; MCHC 35.6 % (32.0-36.0); MCV 90 fL (80-95); MPV 9.6 fL (8.0-11.0); Monocytes % 11.1; Neutrophils % 59.9; Platelet Count 188 10^3/uL (130-400); RBC 4.82 10^6/uL (4.36-5.78); RDW 11.9 % (11.8-14.1); RDW-SD 38.5 fL; WBC 5.39 10^3/uL (4.4-10.8)
[2021-07-27 08:58] LABS: ALT 38 U/L (16-63); AST 26 U/L (15-37); Albumin 3.6 g/dL (3.4-5.0); Alkaline Phosphatase 123 U/L (46-116); Anion Gap 5.5 mmol/L (3-11); BUN 15 mg/dL (7-18); Bilirubin, Total 1.6 mg/dL (0.2-1.0); CO2 30.5 mmol/L (21.0-32.0); CREATININE 1.2 mg/dL (0.70-1.30); Calcium 8.7 mg/dL (8.5-10.1); Chloride 104 mmol/L (98-107); Glucose 113 mg/dL (74-106); Lipase 137 U/L (73-393); Potassium 3.4 mmol/L (3.5-5.1); Sodium 140 mmol/L (136-145); Total Protein 7.5 g/dL (6.4-8.2)
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
== END 2021-07-27 10:26 | disposition home or self-care (01) ==
PROVIDERS: Emergency Provider Physician Assistant; PCP Nurse Practitioner
DX: R19.7 Diarrhea, unspecified (principal)
CPT/HCPCS: 36415; 80053; 83690; 99283; 85025

== ENCOUNTER 2021-07-27 12:22 | Outpatient (REF) | payer MEDICARE, OTHER, SELFPAY ==
[2021-07-27 16:02] LABS: C Diff PCR Negative (Negative)
[2021-07-28 10:24] LABS: Campylobacter PCR Negative (Negative); Salmonella PCR Negative (Negative); Shiga Toxin PCR Negative (Negative); Shigella/Enteroinvasive Ecoli Negative (Negative)
== END 2021-07-27 12:23 | disposition home or self-care (01) ==
LOC: LBN 12:22
PROVIDERS: Physician Assistant; PCP Nurse Practitioner; Visit Provider Nurse Practitioner
DX: R19.7 Diarrhea, unspecified (principal)
CPT/HCPCS: 87329; 87493; 87505; 87177

== ENCOUNTER 2021-08-07 07:56 | Emergency (ER) | payer MEDICARE, OTHER, SELFPAY ==
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
[2021-08-07 08:06] VITALS: BP 148/93; PULSE 83; RESP 18; TEMP 36.6; O2SAT 99
--- NOTE | 2021-08-07 08:15 | DI.CT_ITS ---
Exam(s) CT ABDOMEN PELVIS WO EXAM: CT ABDOMEN PELVIS WO CLINICAL HISTORY: abd pain. TECHNIQUE: Imaging Protocol: Axial computed tomography images with coronal and sagittal reformatted images were created and reviewed CONTRAST MATERIAL: Intravenous: none Oral: Yes. Oral contrast was administered for bowel opacification. COMPARISON: No exams were available for comparison FINDINGS: VISUALIZED LUNG BASES: Mild increased markings left lower lobe. No pleural effusions. ABDOMEN: There is no ascites. LIVER: There are no obvious focal hepatic lesions evident of this noninfused study. GALLBLADDER/BILIARY: Gallbladder surgically absent. CBD is not dilated. PANCREAS: No evidence of pancreatic mass nor dilatation of the pancreatic duct. SPLEEN: Spleen size is upper normal. No obvious splenic lesions. ADRENALS: There are no significant adrenal masses. KIDNEYS:There are 2 large cyst in the right kidney. These measure up to 8 by 7 cm. Smaller cyst not ed in the medial cortex of the left kidney measuring 2 cm. Also few parapelvic cysts on the left. N o solid renal masses. No calculi nor hydronephrosis. . ABDOMINAL AORTA: Abdominal aorta is not enlarged. LYMPH NODES: There is no retroperitoneal nor paraaortic adenopathy. ABDOMINAL WALL: No evidence of significant anterior abdominal wall nor inguinal hernia. GI: There is no evidence of bowel obstruction, free air, nor abscess. PELVIS: LYMPH NODES: There is no intrapelvic nor inguinal adenopathy. GI: No evidence of appendicitis.No evidence of sigmoid diverticulitis. URINARY BLADDER: No calculi nor obvious masses evident REPRODUCTIVE: Prostate gland is enlarged. No obturator adenopathy. Seminal vesicles unremarkable. OSSEOUS: Healed fracture deformity in the left pubic bone. Also degenerative hip changes and multipl e calcific densities around the left hip. There is ankylosis of the right sacroiliac joint. No anky losis of the left sacroiliac joint. This may be related to prior trauma. No lytic nor blastic osseo us lesions evident. Multilevel chronic degenerative disc disease. Large Schmorl's node invagination in the inferior endp late of L2 vertebral body. IMPRESSION: 1. Gallbladder surgically absent. The biliary tree is not dilated. 2. Large right kidney cysts. Smaller left kidney cysts. No solid renal masses. No calculi. No hyd ronephrosis. 3. Fracture deformity of the left pubic bone. Degenerative changes the spine and hips, more so on th e left hip. Multiple loose bodies around the left hip are noted. RADIATION DOSE DELIVERED: 950.22mGy.cm Total DLP DATA REPOSITORY: All CT scans at this facility are submitted to the National Radiology Data Registry (NRDR) Dose Index Registry (DIR) with the [employer] (ACR). RADIATION OPTIMIZATION: All CT scans at this facility use at least one of these dose optimization te chniques: automated exposure control; mA and/or kV adjustment per patient size (includes targeted exa ms where dose is matched to clinical indication); or iterative reconstruction.
[2021-08-07] MEDS: Normal Saline 1,000 ML 1000 ML IV (08:30)
[2021-08-07] MEDS: Breeza Beverage 473 ML BTL PO ×2 (08:32→08:33)
[2021-08-07 08:40] LABS: Abs Immature Grans 0.01 10^3/uL (0.0-0.06); Absolute Basophil Count 0.04 10^3/uL (0.0-0.2); Absolute Eosinophil Count 0.26 10^3/uL (0.0-0.7); Absolute Lymphocyte Count 1.25 10^3/uL (1.2-3.4); Absolute Monocyte Count 0.58 10^3/uL (0.1-0.8); Absolute Neutrophil Count 3.87 10^3/uL (1.2-6.7); Basophils % 0.7; Eosinophils % 4.3; HCT 42.1 % (40.0-50.0); HGB 14.7 g/dL (13.5-17.5); Immature Grans % 0.2; Lymphocytes % 20.8; MCH 31.7 pg (27.0-33.0); MCHC 34.9 % (32.0-36.0); MCV 91 fL (80-95); MPV 9.5 fL (8.0-11.0); Monocytes % 9.7; Neutrophils % 64.3; Platelet Count 170 10^3/uL (130-400); RBC 4.63 10^6/uL (4.36-5.78); RDW-SD 39.4 fL; WBC 6.01 10^3/uL (4.4-10.8)
[2021-08-07 08:53] LABS: ALT 34 U/L (16-63); AST 24 U/L (15-37); Albumin 3.5 g/dL (3.4-5.0); Alkaline Phosphatase 116 U/L (46-116); Anion Gap 5.4 mmol/L (3-11); BUN 17 mg/dL (7-18); Bilirubin, Total 1.3 mg/dL (0.2-1.0); CO2 28.6 mmol/L (21.0-32.0); CREATININE 1.1 mg/dL (0.70-1.30); Calcium 8.7 mg/dL (8.5-10.1); Chloride 105 mmol/L (98-107); Glucose 104 mg/dL (74-106); Potassium 3.8 mmol/L (3.5-5.1); Sodium 139 mmol/L (136-145); Total Protein 7.1 g/dL (6.4-8.2)
[2021-08-07 09:14] VITALS: BP 159/82; PULSE 80; RESP 15; TEMP 36.6; O2SAT 97
[2021-08-07 10:10] VITALS: BP 147/80; PULSE 80; RESP 16; TEMP 36.6; O2SAT 98
--- NOTE | 2021-08-07 10:43 | DI.VRAD_ITS ---
PROCEDURE INFORMATION: Exam: CT Abdomen And Pelvis Without Contrast Exam date and time: 08/07/2021 9:55 AM Age: 65 years old Clinical indication: Other: Abd pain, diarrhea TECHNIQUE: Imaging protocol: Computed tomography of the abdomen and pelvis without contrast. Radiation optimization: All CT scans at this facility use at least one of these dose optimization techniques: automated exposure control; mA and/or kV adjustment per patient size (includes targeted exams where dose is matched to clinical indication); or iterative reconstruction. Other contrast: Oral, gastrograffin, 25 ml gastro/ 1000 ml breeza; COMPARISON: US AAA SCREENING 09/23/2019 10:00 AM FINDINGS: Lungs: Minimal bibasilar atelectasis/scarring. Liver: No discrete mass. Surgical clips posterior to right hepatic lobe. Gallbladder and bile ducts: Cholecystectomy. No appreciable ductal dilation. Pancreas: No discrete mass. Spleen: No splenomegaly. Adrenal glands: No discrete mass. Kidneys and ureters: No nephrolithiasis or hydronephrosis. Nonspecific symmetric bilateral perinephric stranding, possibly related to senescent changes. Bilateral renal cysts, largest on the right and measure up to 9.6 cm. Stomach and bowel: No acute GI inflammatory process or obstruction. Appendix: Possible tiny appendicolith in proximal appendix. No evidence of acute appendicitis. Intraperitoneal space: No free air. No significant fluid collection. Vasculature: Arterial atherosclerotic calcifications. No aneurysm. Pelvic phleboliths. Lymph nodes: No enlarged lymph nodes. Urinary bladder: Unremarkable as visualized. Reproductive: Prostatomegaly. Bones/joints: Osteopenia. Degenerative changes in visualized spine, greatest at L2-L3, and bony pelvis with multiple loose bodies adjacent to left hip. Remote fracture deformity of left pubic bone. Soft tissues: No acute abnormality. IMPRESSION: No acute GI inflammatory process or bowel obstruction. Additional findings as discussed above. Dictated and Authenticated by: Lane Monae MD. Ordering:ATIF Delgado MD
== END 2021-08-07 11:14 | disposition home or self-care (01) ==
PROVIDERS: Emergency Provider Emergency Medicine; PCP Nurse Practitioner
DX: R19.7 Diarrhea, unspecified (principal)
CPT/HCPCS: 80053; 96360; 99284; 74176; 85025; 99283; J3490

== ENCOUNTER → 2021-08-31 10:15 | Outpatient (BNVA) | payer MEDICARE, OTHER, SELFPAY | PROVIDERS: PCP Nurse Practitioner; Referring Provider Nurse Practitioner; Visit Provider Surgery | DX: R14.0 Abdominal distension (gaseous) (principal); R19.7 Diarrhea, unspecified | CPT/HCPCS: 99212 ==

== ENCOUNTER 2021-09-08 02:40 | Outpatient (CLI) | payer MEDICARE, OTHER, SELFPAY ==
[2021-09-08 13:28] LABS: Calculated LDL 88 mg/dL (<100); Cholesterol 137 mg/dL (<200); HDL Cholesterol 37 mg/dL (40-60); Triglyceride 61 mg/dL (<150)
== END 2021-09-08 02:41 | disposition home or self-care (01) ==
LOC: LOS 02:40
PROVIDERS: PCP Nurse Practitioner; Visit Provider Nurse Practitioner
DX: E78.6 Lipoprotein deficiency (principal); E66.9 Obesity, unspecified
CPT/HCPCS: 36415; 80061

== ENCOUNTER 2021-11-04 05:09 | Emergency (ER) | payer MEDICARE, OTHER, SELFPAY ==
[2021-11-04 05:19] VITALS: BP 156/83; PULSE 60; RESP 16; TEMP 36.4; O2SAT 99
--- NOTE | 2021-11-04 05:21 | W.ED.GENAD ---
Discharge Plan Disposition Patient Disposition: HOME Condition: Good Discharge Details Clinical Impression: Diarrhea Primary Care Provider: Noris Diallo ED Provider: Pierre Peña [place] Meds and New Rx's Prescriptions: Continued cetirizine 5 mg Tablet 5 mg PO DAILY dicyclomine 10 mg Capsule 10 mg PO DAILY omeprazole magnesium [Prilosec OTC] 20 mg Tablet,Delayed Release (Dr/Ec) 10 mg PO DAILY losartan-hydrochlorothiazide 100-12.5 mg Tablet 1 tab PO DAILY Discharge Instructions Instructions: Acute Diarrhea (ED) Additional Instructions: Your laboratory studies this morning are reassuring with normal white count and normal electrolytes. Vital signs are normal with no fever. Would follow-up with primary care if continued to have episodes of this intermittent problem. Return to ED for fever, bloody diarrhea, persistent abdominal pain, other concerns Referrals: Noris Diallo, [employer] [Primary Care Provider] - Medical Decision Making Patient presenting after multiple episodes of watery diarrhea at home with no associated hematochezia, abdominal pain, vomiting, fever. Has had intermittent episodes of same but seem to be doing better after discontinuing dairy. Did not have diarrhea yesterday. Has good vital signs and benign abdomen. Feels tired and washed out. We will give fluids and check basic labs. Patient's laboratory studies look fine. Electrolytes normal. White count normal. Patient without episode of diarrhea here. Will finish his bag of fluids and plan discharge home. Return precautions discussed Lab Data Lab results reviewed: Yes I reviewed the patient's lab results. HPI General Mode of arrival: ambulatory. Date/Time Provider Initiated Documentation: 11/04/21 05:17. Limitations to Documentation: no limitations. Information obtained by: patient and RN notes reviewed. HPI Narrative: Patient presents to ED with multiple episodes of diarrhea this morning. Patient has had similar issues and most recently in August was seen in the ED, by primary care, by surgery. He changed up his diet and was avoiding lactose as well as taking Bentyl. Yesterday during the day he had no dairy products whatsoever. Around 2 AM woke with his first episode of diarrhea in his head at least 5 more with the last one being about 1 hour prior to arrival. It is nonbloody but watery. No associated vomiting or abdominal pain. Denies nausea. Is tired as he has not slept due to all the diarrhea. Related Data Home Medications Medication Instructions Recorded Confirmed cetirizine 5 mg tablet 5 mg PO DAILY 11/04/21 11/04/21 dicyclomine 10 mg capsule 10 mg PO DAILY 11/04/21 11/04/21 losartan 100 1 tab PO DAILY 11/04/21 11/04/21 mg-hydrochlorothiazide 12.5 mg tablet omeprazole magnesium 20 mg 10 mg PO DAILY 11/04/21 11/04/21 tablet,delayed release (Prilosec OTC) Allergies Allergy/AdvReac Type Severity Reaction Status Date / Time No Known Allergies Allergy Unverified 11/04/21 05:22 Review of Systems Narrative: 07/17 Review of Systems completed and is negative except as stated above in HPI (Systems reviewed: Const, Resp, CV, GI, Neuro) PFSH All Active Problems (Updated 11/04/21 @ 06:18 by Pierre Peña MD) Diarrhea (Acute) Medical History GERD (gastroesophageal reflux disease) HTN (hypertension) Hypercholesterolemia Pulmonary embolism Surgical History History of orthopedic surgery S/P cholecystectomy S/P TKR (total knee replacement) Social History Smoking/Tobacco Use Status: Former Tobacco Use Smoking risk assessment performed?: Yes Alcohol Intake: never Substance use type: does not use Exam Narrative Exam Narrative: Const: WDWN male in NAD. HEENT: NC/AT. Normal facial exam. Eyes: Normal conjunctiva and sclera. Neck: Supple. Trachea midline. Lungs: Normal respiratory effort. Cor: RRR. Good radial pulses. GI: Soft. NT/ND. No guarding or rebound. Neuro: A+O x 3. Normal speech, mentation, gait. Cranial nerves II - XII grossly intact. No gross motor or sensory deficit. Ext: No C/C/E. Skin: Warm and dry without rash.
[2021-11-04] MEDS: Normal Saline 1,000 ML 1000 ML IV (05:40)
[2021-11-04 05:50] LABS: Abs Immature Grans 0.02 10^3/uL (0.0-0.06); Absolute Basophil Count 0.03 10^3/uL (0.0-0.2); Absolute Eosinophil Count 0.09 10^3/uL (0.0-0.7); Absolute Monocyte Count 0.59 10^3/uL (0.1-0.8); Basophils % 0.5; Eosinophils % 1.6; HCT 43.3 % (40.0-50.0); HGB 15.6 g/dL (13.5-17.5); Immature Grans % 0.3; Lymphocytes % 19.2; MCV 89 fL (80-95); MPV 9.5 fL (8.0-11.0); Monocytes % 10.3; Neutrophils % 68.1; Platelet Count 167 10^3/uL (130-400); RBC 4.87 10^6/uL (4.36-5.78); RDW-SD 38.7 fL; WBC 5.73 10^3/uL (4.4-10.8)
[2021-11-04 06:00] LABS: Anion Gap 7.2 mmol/L (3-11); BUN 19 mg/dL (7-18); CO2 28.8 mmol/L (21.0-32.0); CREATININE 1.1 mg/dL (0.70-1.30); Chloride 103 mmol/L (98-107); Estimated GFR 73.12 (mL/min/1.73m2); Glucose 119 mg/dL (74-106); Magnesium 1.8 mg/dL (1.8-2.4); Potassium 3.5 mmol/L (3.5-5.1); Sodium 139 mmol/L (136-145)
[2021-11-04 06:44] VITALS: BP 160/82; PULSE 68; RESP 18; O2SAT 97
== END 2021-11-04 06:51 | disposition home or self-care (01) ==
PROVIDERS: Emergency Provider Emergency Medicine; PCP Nurse Practitioner
DX: R19.7 Diarrhea, unspecified (principal); I10 Essential (primary) hypertension; Z87.891 Personal history of nicotine dependence
CPT/HCPCS: 36415; 80048; 96360; 99284; 83735; 85025; 99282

== ENCOUNTER 2022-11-22 03:25 | Outpatient (CLI) | payer MEDICARE, SELFPAY ==
[2022-11-22 12:46] LABS: ALT 34 U/L (16-63); AST 26 U/L (15-37); Albumin 3.5 g/dL (3.4-5.0); Alkaline Phosphatase 121 U/L (46-116); Anion Gap 5.6 mmol/L (3-11); BUN 17 mg/dL (7-18); Bilirubin, Total 1.1 mg/dL (0.2-1.0); CO2 30.4 mmol/L (21.0-32.0); CREATININE 1.2 mg/dL (0.70-1.30); Calcium 9.2 mg/dL (8.5-10.1); Calculated LDL 86 mg/dL (<100); Chloride 101 mmol/L (98-107); Cholesterol 137 mg/dL (<200); Estimated GFR 65.46 (mL/min/1.73m2); Glucose 95 mg/dL (74-106); HDL Cholesterol 39 mg/dL (40-60); Potassium 3.7 mmol/L (3.5-5.1); Sodium 137 mmol/L (136-145); Total Protein 7.4 g/dL (6.4-8.2); Triglyceride 64 mg/dL (<150)
[2022-11-22 13:11] LABS: Hemoglobin A1C 5.1 % (<5.7)
== END 2022-11-22 03:26 | disposition home or self-care (01) ==
PROVIDERS: PCP Nurse Practitioner; Visit Provider Nurse Practitioner
DX: I10 Essential (primary) hypertension (principal); R73.01 Impaired fasting glucose; E66.9 Obesity, unspecified
CPT/HCPCS: 36415; 80053; 80061; 83036

== ENCOUNTER 2024-06-27 02:23 | Outpatient (CLI) | payer MEDICARE, SELFPAY ==
[2024-06-27 12:43] LABS: ALT 32 U/L (16-63); AST 27 U/L (15-37); Albumin 3.6 g/dL (3.4-5.0); Alkaline Phosphatase 108 U/L (46-116); Anion Gap 8.3 mmol/L (3-11); BUN 16 mg/dL (7-18); Bilirubin, Total 1.2 mg/dL (0.2-1.0); CO2 27.7 mmol/L (21.0-32.0); Calcium 9.1 mg/dL (8.5-10.1); Chloride 107 mmol/L (98-107); Estimated GFR 80.97 (mL/min/1.73m2); Glucose 108 mg/dL (74-106); Potassium 3.6 mmol/L (3.5-5.1); Sodium 143 mmol/L (136-145)
[2024-06-27 13:39] LABS: Calculated LDL 89 mg/dL (<100); Cholesterol 153 mg/dL (<200); HDL Cholesterol 46 mg/dL (>or=40); Triglyceride 92 mg/dL (<150)
== END 2024-06-27 02:24 | disposition home or self-care (01) ==
PROVIDERS: PCP Nurse Practitioner; Visit Provider Nurse Practitioner
DX: I10 Essential (primary) hypertension (principal); E78.00 Pure hypercholesterolemia, unspecified
CPT/HCPCS: 36415; 80053; 80061